=== PATIENT | female | born 1945 | race African-American/Black ===

== ENCOUNTER 2017-05-27 11:51 | Emergency (ER) | payer MEDICARE, OTHER ==
[~2017-05-27] VITALS: Ht 175.3 cm; Wt 86.0 kg
[~2017-05-27 11:51] MED LIST: ASPI-1159 PO; FURO40TA5 PO; LISI1TAB11 PO; OYSCO; RANI150T7 PO; WARF5TAB73 PO; [UNRECOGNIZED DRUG - OTHER]
[2017-05-27 15:57] LABS: BASOPHILS % 1.2 % (0.0-2.0); EOSINOPHILS % 3.2 % (0.0-5.0); HEMOGLOBIN. 13.1 g/dL (12.0-16.0); LYMPHOCYTES % 27.6 % (20.0-50.0); MEAN CORPUSCULAR HEMOGLOBIN 25.1 pg (28.0-32.0); MEAN CORPUSCULAR VOLUME 76.7 fL (81.0-99.0); MEAN PLATELET VOLUME 8.6 fl (7.4-10.4); MONOCYTES % 10.9 % (2.0-8.0); NEUTROPHILS % 57.1 % (40.0-76.0); PLATELET 232 x1000/uL (130-400); RED BLOOD CELL COUNT 5.21 mill/uL (4.2-5.4); RED CELL DISTRIBUTION WIDTH 15.3 % (11.6-14.6)
[2017-05-27 15:58] LABS: CHLORIDE 98 mEq/L (98-107)
[2017-05-27 15:59] LABS: INR 2.2; PROTHROMBIN TIME 23.4 sec (9.4-11.6)
[2017-05-27] MEDS ORDERED: HYDROCODONE/ACETAMINOPHEN 5/325MG TABLET PO ONE (17:00)
[2017-05-27 18:09] LABS: CLARITY URINE CLOUDY (CLEAR); COLOR URINE YELLOW (YELLOW); KETONES URINE NEGATIVE (NEGATIVE); LEUKOCYTE ESTERASE URINE 3+ (NEGATIVE); NITRITE URINE NEGATIVE (NEGATIVE); OCCULT BLOOD URINE NEGATIVE (NEGATIVE); PH URINE 5.5 (4.5-8.0); PROTEIN URINE NEGATIVE (NEGATIVE); SPECIFIC GRAVITY URINE 1.018 (1.005-1.030); UROBILINOGEN URINE 0.2 E.U./dL (0.2-1.0)
[2017-05-27 19:27] VITALS: BP 128/81
== END 2017-05-27 20:37 | disposition home or self-care (01) ==
LOC: ER 12:02
DX: M79.651 Pain in right thigh (principal); I10 Essential (primary) hypertension; Z86.711 Personal history of pulmonary embolism
CPT/HCPCS: 36415; 80053; 81001; 85025; 85610; 93971; 99285

== ENCOUNTER 2017-06-06 11:26 | Emergency (ER) | payer MEDICARE ==
[~2017-06-06] VITALS: Ht 162.6 cm; Wt 64.0 kg
[2017-06-06] MEDS ORDERED: HYDROCODONE/ACETAMINOPHEN 5/325MG TABLET PO ONE (12:45)
[2017-06-06 12:58] VITALS: BP 143/98
== END 2017-06-06 15:15 | disposition home or self-care (01) ==
LOC: ER 11:26
DX: M54.30 Sciatica, unspecified side (principal); I10 Essential (primary) hypertension; Z79.82 Long term (current) use of aspirin; Z79.01 Long term (current) use of anticoagulants; Z87.440 Personal history of urinary (tract) infections
CPT/HCPCS: 73502; 99284

== ENCOUNTER 2018-07-31 22:41 | Inpatient (IN) | payer MEDICARE ==
[~2018-07-31] VITALS: Ht 167.6 cm; Wt 93.0 kg
[~2018-07-31 22:41] MED LIST changes: +WARF-53 PO; -WARF5TAB73 PO
[2018-08-01] MEDS ORDERED: MORPHINE SULFATE 4 MG/ML CPJ (NOT FOR IM USE) IV STA (00:01)
[2018-08-01] MEDS ORDERED: FAMOTIDINE 20MG/2ML VIAL IV STA (00:01)
[2018-08-01] MEDS ORDERED: ONDANSETRON HCL 4MG/2ML INJ IV STA (00:01)
[2018-08-01] MEDS ORDERED: SODIUM CHLORIDE 0.9% 1,000 ML IV ONE (00:01)
[2018-08-01] MEDS ORDERED: CEFTRIAXONE 1 G PREMIX 50 ML IV ONE (00:45)
[2018-08-01 01:09] LABS: HEMATOCRIT. 38.9 % (36.0-48.0); HEMOGLOBIN. 12.6 g/dL (12.0-16.0); MEAN CORPUSCULAR HEMOGLOBIN 24.4 pg (28.0-32.0); MEAN CORPUSCULAR VOLUME 75.2 fL (81.0-99.0); PLATELET 190 x1000/uL (130-400); RED BLOOD CELL COUNT 5.17 mill/uL (4.2-5.4); RED CELL DISTRIBUTION WIDTH 16.9 % (11.6-14.6)
[2018-08-01 01:10] LABS: BASOPHILS % 0.8 % (0.0-2.0); EOSINOPHILS % 0.7 % (0.0-5.0); MONOCYTES % 6.7 % (2.0-8.0); NEUTROPHILS % 71.8 % (40.0-76.0)
[2018-08-01 01:12] LABS: CHLORIDE 99 mEq/L (98-107)
[2018-08-01 01:20] LABS: BETA HYDROXYBUTYRATE 0.2 mMol/L (0.0-0.3)
[2018-08-01] MEDS ORDERED: MAGNESIUM/ALUMINUM HYDROXIDE/SIMETHICONE 30ML UDC PO PRN (08:00)
[2018-08-01] MEDS ORDERED: IPRATROPIUM/ALBUTEROL 0.5-3(2.5)MG/3ML NEB INH PRN (08:00)
[2018-08-01] MEDS ORDERED: DEXTROSE 50% WATER 50ML SYRINGE IV PRN (08:00)
[2018-08-01] MEDS ORDERED: NA PHOS,M-B/NA PHOS,DI-BA ENEMA 118ML PR PRN (08:00)
[2018-08-01] MEDS ORDERED: HYDROCODONE/ACETAMINOPHEN 10/325MG TABLET PO PRN (08:00)
[2018-08-01] MEDS ORDERED: HYDRALAZINE 20MG/ML VIAL IV PRN (08:00)
[2018-08-01] MEDS ORDERED: DIPHENHYDRAMINE 50MG/ML VIAL IV PRN (08:00)
[2018-08-01] MEDS ORDERED: ACETAMINOPHEN 325MG TABLET PO PRN (08:00)
[2018-08-01] MEDS ORDERED: LORAZEPAM 2MG/ML CPJ IV PRN (08:00)
[2018-08-01] MEDS ORDERED: CLONIDINE 0.1MG TABLET PO PRN (08:00)
[2018-08-01] MEDS ORDERED: HYDROMORPHONE HCL/PF 2MG/ML CPJ IV PRN (08:00)
[2018-08-01] MEDS ORDERED: DOCUSATE SODIUM 100MG CAPSULE PO PRN (08:00)
[2018-08-01] MEDS ORDERED: GUAIFENESIN 200MG/10ML SUGAR FREE UDC PO PRN (08:00)
[2018-08-01 09:45] VITALS: BP 135/84
[2018-08-01 10:00] VITALS: BP 135/84
[2018-08-01] MEDS: ASPIRIN 81MG EC TABLET PO SCH (10:00)
[2018-08-01] MEDS: ENOXAPARIN 40MG/0.4ML SYR SUBCUT SCH (11:00)
[2018-08-01] MEDS ORDERED: WARF6TAB48 PO ×2 (11:52→11:53)
[2018-08-01] MEDS ORDERED: CALC-3 MT (11:52)
[2018-08-01 12:00] VITALS: BP 125/71
[2018-08-01] MEDS ORDERED: POTA20TA82 MT (12:13)
[2018-08-01] MEDS: INSULIN LISPRO 100 UNITS/ML SUBCUT SCH ×3 (12:50→21:00)
[2018-08-01] MEDS: BLOOD SUGAR DIAGNOSTIC STRIP TEST SCH ×3 (13:02→21:09)
[2018-08-01] MEDS: SODIUM CHLORIDE 0.9% INJ 3ML FLUSH IVF SCH ×2 (13:10→21:09)
[2018-08-01 15:53] LABS: CREATINE KINASE 73 IU/L (26-192)
[2018-08-01 15:54] LABS: CREATINE KINASE MB FRACTION 1.1 ng/mL (0.5-3.6)
[2018-08-01 16:00] VITALS: BP 123/71
[2018-08-01 20:00] VITALS: BP 112/70
[2018-08-01 23:52] LABS: CREATINE KINASE 58 IU/L (26-192)
[2018-08-01 23:53] LABS: CREATINE KINASE MB FRACTION < 1.0 ng/mL (0.5-3.6)
[2018-08-02 00:49] VITALS: BP 106/54
[2018-08-02 04:00] VITALS: BP 113/65
[2018-08-02 04:13] VITALS: BP 113/65
[2018-08-02] MEDS: BLOOD SUGAR DIAGNOSTIC STRIP TEST SCH ×4 (06:30→21:00)
[2018-08-02] MEDS: SODIUM CHLORIDE 0.9% INJ 3ML FLUSH IVF SCH ×3 (06:31→22:03)
[2018-08-02 07:23] LABS: BASOPHILS % 0.4 % (0.0-2.0); EOSINOPHILS % 1.1 % (0.0-5.0); HEMATOCRIT. 37.1 % (36.0-48.0); LYMPHOCYTES % 18.6 % (20.0-50.0); MEAN CORPUSCULAR HEMOGLOBIN 24.2 pg (28.0-32.0); MEAN CORPUSCULAR VOLUME 74.9 fL (81.0-99.0); MEAN PLATELET VOLUME 9.2 fl (7.4-10.4); MONOCYTES % 13.6 % (2.0-8.0); NEUTROPHILS % 66.3 % (40.0-76.0); PLATELET 180 x1000/uL (130-400); RED BLOOD CELL COUNT 4.95 mill/uL (4.2-5.4)
[2018-08-02 07:30] LABS: CHLORIDE 99 mEq/L (98-107)
[2018-08-02] MEDS: ASPIRIN 81MG EC TABLET PO SCH (07:40)
[2018-08-02] MEDS: INSULIN LISPRO 100 UNITS/ML SUBCUT SCH ×4 (07:40→21:00)
[2018-08-02 08:00] VITALS: BP 122/75
[2018-08-02] MEDS: ENOXAPARIN 40MG/0.4ML SYR SUBCUT SCH (09:02)
[2018-08-02 12:00] VITALS: BP 112/68
[2018-08-02 17:55] LABS: PROTHROMBIN TIME 19.7 sec (9.6-11.0)
[2018-08-02] MEDS ORDERED: WARFARIN SODIUM 7.5MG TABLET PO SCH (18:05)
[2018-08-02 20:00] VITALS: BP 105/56
[2018-08-03] VITALS (8 sets, daily range): BP systolic 90–106; BP diastolic 47–64
[2018-08-03] MEDS: SODIUM CHLORIDE 0.9% INJ 3ML FLUSH IVF SCH ×2 (06:06→13:51)
[2018-08-03] MEDS: BLOOD SUGAR DIAGNOSTIC STRIP TEST SCH ×3 (06:06→17:20)
[2018-08-03 07:03] LABS: INR 1.8; PROTHROMBIN TIME 18.1 sec (9.6-11.0)
[2018-08-03 07:16] LABS: BASOPHILS % 0.8 % (0.0-2.0); EOSINOPHILS % 4.7 % (0.0-5.0); HEMATOCRIT. 40.2 % (36.0-48.0); HEMOGLOBIN. 12.9 g/dL (12.0-16.0); LYMPHOCYTES % 23.9 % (20.0-50.0); MEAN CORPUSCULAR HEMOGLOBIN 24.1 pg (28.0-32.0); MEAN CORPUSCULAR VOLUME 74.9 fL (81.0-99.0); MEAN PLATELET VOLUME 9.5 fl (7.4-10.4); MONOCYTES % 11.4 % (2.0-8.0); NEUTROPHILS % 59.2 % (40.0-76.0); PLATELET 187 x1000/uL (130-400); RED BLOOD CELL COUNT 5.37 mill/uL (4.2-5.4); RED CELL DISTRIBUTION WIDTH 16.9 % (11.6-14.6)
[2018-08-03] MEDS: INSULIN LISPRO 100 UNITS/ML SUBCUT SCH ×3 (07:17→17:50)
[2018-08-03 07:35] LABS: CHLORIDE 99 mEq/L (98-107)
[2018-08-03] MEDS: ASPIRIN 81MG EC TABLET PO SCH (10:06)
[2018-08-03 12:44] LABS: T4 FREE 1.6 ng/dL (0.76-1.46)
[2018-08-03 15:40] LABS: CREATINE KINASE 58 IU/L (26-192)
[2018-08-03 15:41] LABS: CREATINE KINASE MB FRACTION < 1.0 ng/mL (0.5-3.6)
[2018-08-03] MEDS ORDERED: WARFARIN SODIUM 3MG TABLET PO SCH (18:00)
[2018-08-03 23:14] LABS: CREATINE KINASE 49 IU/L (26-192)
[2018-08-03 23:15] LABS: CREATINE KINASE MB FRACTION < 1.0 ng/mL (0.5-3.6)
== END 2018-08-03 23:25 | disposition home or self-care (01) | DRG 445 ==
LOC: ER 22:41 → 6WST 08-01 02:53 → EDBEDREQTM 08-01 02:56 → EDBEDREQSVC 08-01 02:56 → EDBEDREQ 08-01 02:56 → ENRESERV 08-01 07:16
PROVIDERS: ADMIT Internal Medicine; ATTEND Internal Medicine
DX: K80.10 Calculus of gallbladder with chronic cholecystitis without obstruction (principal); E44.1 Mild protein-calorie malnutrition; I10 Essential (primary) hypertension; M19.90 Unspecified osteoarthritis, unspecified site; E11.9 Type 2 diabetes mellitus without complications; E78.5 Hyperlipidemia, unspecified; R19.7 Diarrhea, unspecified; D48.1 Neoplasm of uncertain behavior of connective and other soft tissue; Z86.711 Personal history of pulmonary embolism; Z79.01 Long term (current) use of anticoagulants; Z85.3 Personal history of malignant neoplasm of breast; Z79.82 Long term (current) use of aspirin; Z79.899 Other long term (current) drug therapy; Z95.828 Presence of other vascular implants and grafts
CPT/HCPCS: 36415; 71045; 74176; 76705; 78582; 80048; 80061; 82010; 82550; 82553; 82962; 83036; 83605; 83880; 84439; 84443; 84484; 85379; 93005; 93306; 96365; 96375; 99285; A9558; J0696; J1650; J1815; J2270; J2405; J3490; J7030

== ENCOUNTER 2018-09-22 10:12 | Emergency (ER) | payer MEDICARE, OTHER ==
[~2018-09-22] VITALS: Ht 167.6 cm; Wt 104.0 kg
[~2018-09-22 10:12] MED LIST changes: +ACET-2708 PO; -ASPI-1159 PO; +ATOR40TA70 MT; +CALC-1042 PO; -FURO40TA5 PO; -OYSCO; +POTA20TA82 MT; -RANI150T7 PO; -WARF-53 PO; -[UNRECOGNIZED DRUG - OTHER]
[2018-09-22 10:16] VITALS: BP 132/76
[2018-09-22] MEDS ORDERED: ACETAMINOPHEN 325MG TABLET PO ONE (12:30)
== END 2018-09-22 15:02 | disposition home or self-care (01) ==
LOC: ER 10:12
DX: S83.92XA Sprain of unspecified site of left knee, initial encounter (principal); S43.402A Unspecified sprain of left shoulder joint, initial encounter; S80.01XA Contusion of right knee, initial encounter; E11.9 Type 2 diabetes mellitus without complications; I10 Essential (primary) hypertension; Z85.3 Personal history of malignant neoplasm of breast; Z79.899 Other long term (current) drug therapy; Z79.01 Long term (current) use of anticoagulants; Z87.09 Personal history of other diseases of the respiratory system; W10.8XXA Fall (on) (from) other stairs and steps, initial encounter; Y93.01 Activity, walking, marching and hiking; Y92.531 Health care provider office as the place of occurrence of the external cause; Y99.8 Other external cause status
CPT/HCPCS: 73030; 73560; 99283

== ENCOUNTER 2018-11-09 10:28 | Emergency (ER) | payer MEDICARE, OTHER ==
[~2018-11-09] VITALS: Ht 170.2 cm; Wt 95.0 kg
[2018-11-09 12:31] VITALS: BP 102/76
== END 2018-11-09 15:18 | disposition home or self-care (01) ==
LOC: ER 10:28
DX: L53.9 Erythematous condition, unspecified (principal); R21 Rash and other nonspecific skin eruption; E78.00 Pure hypercholesterolemia, unspecified; I10 Essential (primary) hypertension; Z87.891 Personal history of nicotine dependence; Z85.3 Personal history of malignant neoplasm of breast; Z95.9 Presence of cardiac and vascular implant and graft, unspecified
CPT/HCPCS: 99282

== ENCOUNTER 2020-02-20 08:33 | Emergency (ER) | payer MEDICARE, OTHER ==
[~2020-02-20] VITALS: Ht 167.6 cm; Wt 82.0 kg
[2020-02-20] MEDS ORDERED: MAGNESIUM/ALUMINUM HYDROXIDE/SIMETHICONE 30ML UDC PO STA (09:32)
[2020-02-20] MEDS ORDERED: ONDANSETRON HCL 4MG/2ML INJ IV STA (09:32)
[2020-02-20] MEDS ORDERED: FAMOTIDINE 20MG/2ML VIAL IV STA (09:32)
[2020-02-20 09:49] LABS: EOSINOPHILS % 0.7 % (0.0-5.0); HEMATOCRIT. 37.2 % (36.0-48.0); HEMOGLOBIN. 12.4 g/dL (12.0-16.0); LYMPHOCYTES % 33.4 % (20.0-50.0); MEAN CORPUSCULAR HEMOGLOBIN 32.1 pg (28.0-32.0); MEAN CORPUSCULAR VOLUME 96.3 fL (81.0-99.0); NEUTROPHILS % 57.9 % (40.0-76.0); PLATELET 184 x1000/uL (130-400); RED BLOOD CELL COUNT 3.86 mill/uL (4.2-5.4)
[2020-02-20 09:54] LABS: CHLORIDE 99 mEq/L (98-107)
[2020-02-20] MEDS ORDERED: VISCOUS LIDOCAINE 2% 15 ML UDC MM STA (10:54)
[2020-02-20] MEDS ORDERED: MORPHINE SULFATE 4 MG/ML CPJ (NOT FOR IM USE) IV ONE (11:00)
[2020-02-20] MEDS ORDERED: ONDANSETRON HCL 4MG/2ML INJ IV ONE (11:00)
[2020-02-20] MEDS ORDERED: SODIUM CHLORIDE 0.9% 500 ML IV ONE (11:00)
[2020-02-20 13:51] LABS: INR 3.3
[2020-02-20] MEDS ORDERED: IOHEXOL-300 100 ML BOTTLE ONE (15:28)
[2020-02-20 17:37] LABS: CLARITY URINE CLEAR (CLEAR); COLOR URINE YELLOW (YELLOW); KETONES URINE NEGATIVE (NEGATIVE); LEUKOCYTE ESTERASE URINE NEGATIVE (NEGATIVE); NITRITE URINE NEGATIVE (NEGATIVE); OCCULT BLOOD URINE NEGATIVE (NEGATIVE); PROTEIN URINE NEGATIVE (NEGATIVE); SPECIFIC GRAVITY URINE 1.031 (1.005-1.030)
[2020-02-20 19:38] VITALS: BP 142/93
== END 2020-02-20 20:10 | disposition short-term general hospital (02) ==
LOC: ER 08:33 → CANBEDREQ 20:29
DX: R11.2 Nausea with vomiting, unspecified (principal); R10.13 Epigastric pain; E78.00 Pure hypercholesterolemia, unspecified; I10 Essential (primary) hypertension; Z85.9 Personal history of malignant neoplasm, unspecified; Z79.899 Other long term (current) drug therapy
CPT/HCPCS: 36415; 71045; 74177; 80053; 81003; 83690; 84132; 84484; 85025; 85610; 96374; 96375; 96376; 99285; J2270; J2405; J3490; J7040; Q9967

== ENCOUNTER 2020-03-14 11:35 | Emergency (ER) | payer MEDICARE, OTHER ==
[~2020-03-14] VITALS: Ht 162.6 cm; Wt 73.0 kg
[2020-03-14] MEDS ORDERED: ACETAMINOPHEN 325MG TABLET PO ONE (12:15)
[2020-03-14 15:20] LABS: BASOPHILS % 0.7 % (0.0-2.0); EOSINOPHILS % 0.5 % (0.0-5.0); HEMATOCRIT. 35.7 % (36.0-48.0); HEMOGLOBIN. 11.8 g/dL (12.0-16.0); LYMPHOCYTES % 17.5 % (20.0-50.0); MEAN CORPUSCULAR HEMOGLOBIN 32.1 pg (28.0-32.0); MEAN CORPUSCULAR VOLUME 96.8 fL (81.0-99.0); MEAN PLATELET VOLUME 8.2 fl (7.4-10.4); MONOCYTES % 12.6 % (2.0-8.0); NEUTROPHILS % 68.7 % (40.0-76.0); PLATELET 115 x1000/uL (130-400); RED BLOOD CELL COUNT 3.69 mill/uL (4.2-5.4)
[2020-03-14 15:29] LABS: CHLORIDE 102 mEq/L (98-107)
[2020-03-14] MEDS ORDERED: KETOROLAC 30MG/ML VIAL IM ONE (16:00)
[2020-03-14 16:29] VITALS: BP 122/82
== END 2020-03-14 16:30 | disposition home or self-care (01) ==
LOC: ER 11:35
DX: S70.02XA Contusion of left hip, initial encounter (principal); E78.00 Pure hypercholesterolemia, unspecified; I10 Essential (primary) hypertension; Z79.899 Other long term (current) drug therapy; Z98.890 Other specified postprocedural states; W18.30XA Fall on same level, unspecified, initial encounter; Y93.89 Activity, other specified; Y92.89 Other specified places as the place of occurrence of the external cause; Y99.8 Other external cause status
CPT/HCPCS: 36415; 71045; 73522; 80053; 83880; 85025; 96372; 99284; J1885